=== PATIENT | male | born 1960 | race Caucasian/White ===

== ENCOUNTER 2018-07-22 18:23 | Emergency (ER) | payer BC ==
[2018-07-22] MEDS: DIAZEPAM 5 MG TAB PO (19:56)
[2018-07-22] MEDS: KETOROLAC 30 MG INJ IM (19:59)
== END 2018-07-22 20:45 | disposition home or self-care (01) ==
LOC: FTE 18:23
DX: M54.5 Low back pain (principal)
CPT/HCPCS: 96372; 99284-25